=== PATIENT | male | born 1965 | race Caucasian/White ===

== ENCOUNTER → 2019-09-15 10:03 | Outpatient (BNVA) | payer MEDICAID, SELFPAY | PROVIDERS: Family Provider Psychiatry & Neurology Neurology; Visit Provider Nurse Practitioner | DX: F25.1 Schizoaffective disorder, depressive type (principal); F22 Delusional disorders; F17.210 Nicotine dependence, cigarettes, uncomplicated | CPT/HCPCS: 99213 ==

== ENCOUNTER 2022-09-05 09:38 | Outpatient (CLI) | payer MEDICAID, SELFPAY ==
--- NOTE | 2022-09-05 10:27 | MR_ITS ---
WS: [id number] MRI LUMBAR SPINE NONCONTRAST HISTORY: VERTEBROGENIC LOW BACK PAIN COMPARISON: None available. TECHNIQUE: Sagittal and axial multisequence imaging is submitted. Mild degenerative disc disease and central stenosis in the mid cervical spine. Mild anterior wedging of T4 and T5. Normal lumbar alignment with no compression fractures or marrow edema. Disc spaces and vertebral body heights are well-preserved. Conus terminates normally at L1. L1-L2: Normal. L2-L3: Mild disc bulging. No stenosis. L3-L4: Small LEFT foraminal disc protrusion with fissure. Very mild LEFT foraminal stenosis. L4-L5: Mild annular disc bulging. Small LEFT foraminal disc protrusion with large annular fissure. 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 L5-S1: Mild annular disc bulging. No stenosis. 11 mm RIGHT renal cyst. MR/MR lumbar spine wo con* [id number] IMPRESSION: 1. No significant central or foraminal stenosis. 2. Small LEFT foraminal disc protrusions with annular fissures at L3-4 and L4- 5.
== END 2022-09-05 09:39 | disposition home or self-care (01) ==
LOC: RAD 09:43
PROVIDERS: Visit Provider Anesthesiology Pain Medicine
DX: M51.26 Other intervertebral disc displacement, lumbar region (principal)
CPT/HCPCS: 72148